=== PATIENT | male | born 1980 | race Caucasian/White ===

== ENCOUNTER 2018-02-02 08:04 | Emergency (ER) | payer MEDICAID ==
[2018-02-02 09:10] LABS: PLATELET COUNT 249 10^3/uL (150-400)
[2018-02-02] MEDS ORDERED: OLANZapine DISINTEGR 10 MG TAB PO ONE (09:38)
--- NOTE | 2018-02-02 09:40 | EDPHY ---
H & P Smoking Status: Current every day smoker Time Seen by Provider: 02/02/18 08:45 HPI/ROS: CHIEF COMPLAINT: Altered mental status, irregular speech HISTORY OF PRESENT ILLNESS: The patient is a 37-year-old male with a history of crystal meth abuse. Patient has been clean for 2 years per report of his parents. The parents left town and there is concerned the patient may have used crystal methamphetamine. The patient states that he was playing a game and "it got out of control." The patient has no complaints at this time. He feels as though he should not be here and that he has been here too long. REVIEW OF SYSTEMS: 10 systems were reveiwed and are negative with the exception of the elements mentioned in the history of present illness. (Kenia Gómez) Past Medical/Surgical History: Includes methamphetamine abuse (Kenia Gómez) Physical Exam: Vitals noted. Tachycardic at 1:12 a.m. GENERAL: No acute distress, alert. Pacing about the room HEENT: Dilated pupils, normal pharynx, no signs of dehydration. NECK: Normal, supple. RESPIRATORY: Clear to auscultation bilaterally, no rales, rhonchi or wheezing. CVS: Tachycardia and regular rhythm, no rubs, murmurs, or gallops. ABDOMEN: Soft, nontender, nondistended, no organomegaly. Benign BACK: Normal to inspection, no CVA tenderness. SKIN: Normal color, no rash, warm, dry. No pallor. EXTREMITIES: No pedal edema, no calf tenderness, no Homans sign or cords, no joint swelling. NEURO/PSYCH: Alert and agitated. Patient does not know the day or month. Patient does not know the year. Pressured speech. Rambling and illogical. Moves all extremities purposefully. (Kenia Gómez) Constitutional: Initial Vital Signs Temperature (C) 36.4 C 02/02/18 08:05 Heart Rate 112 H 02/02/18 08:05 Respiratory Rate 16 02/02/18 08:05 Blood Pressure 157/102 H 02/02/18 08:05 O2 Sat (%) 94 02/02/18 08:05 O2 Delivery Mode Room Air Allergies/Adverse Reactions: No Known Allergies Allergy (Unverified 02/02/18 08:18) Home Medications: Medication Instructions Recorded Unobtainable 02/02/18 Medical Decision Making ED Course/Re-evaluation: In the emergency department discussed plan with the patient. Patient was placed on an M1 hold. I felt the patient was gravely disabled. He is not able to answer my questions appropriately. He is unable to name the month or year. Patient has pressured and rambling speech. The patient was given Zyprexa 10 mg orally. CBC and chemistry unremarkable. Patient was given Haldol 10 mg IM. Patient's tox screen is positive for amphetamine. On recheck the patient was stable. 1500: The patient is signed out to Dr. Logan at change of shift. (Kenia Gómez) 0700: No acute events overnight patient has been sleeping. He did receive Haldol last night. He was methamphetamine positive. Signed over at 7:[address] Sherman. Plan for this patient is he is supposed like to go home with his parents today. They are coming back from [place] to pick him up. (Mika Cesar) I had a discussion with this patient. He does not know when his parents are coming from [place]. He has a home to go to. He has a dog there that he wants to take care of. He does not meet criteria at this time for an M1 hold. He is a methamphetamine addict. I am discharging him to make arrangements to me his parents. (Quang Sherman) Differential Diagnosis: My differential includes but is not limited to drug use, alcohol abuse, head injury, electrolyte abnormality, sugar abnormality, psychiatric illness (Kenia Gómez) Other Provider: I assumed care of this patient from Dr. Gómez at 3:00 p.m.. He is sleeping at this time after having been sedated. Apparently he was quite psychotic and difficult to control. I will not awaken him at this time. I will let him sleep this off a bit longer. He has no known psychiatric history and nursing staff has spoken with his parents who verify this. I suspect that his presentation is secondary to methamphetamine abuse. Nursing staff plans to obtain another set of vital signs. Patient evaluated by me around 4:30 PM. He awakens easily, answers questions appropriately. He remains mildly tachycardic and has occasional myoclonic-type jerking of limbs. He complains of fatigue. I expect him to return to his baseline as the meth wears off and I anticipate that he will be able to be discharged when that occurs. His care will be transferred to Dr. Cesar at change of shift. (Jumana Logan ) - Data Points Laboratory Results: Laboratory Results 02/02/18 08:40 02/03/18 01:40 02/03/18 01:40 Sodium 139 mEq/L mEq/L (135-145) Potassium 3.7 mEq/L mEq/L (3.5-5.2) Chloride 107 mEq/L mEq/L (97-110) Carbon Dioxide 24 mEq/l mEq/l (22-31) Anion Gap 8 mEq/L mEq/L (6-14) BUN 19 mg/dL mg/dL (7-23) Creatinine 0.8 mg/dL mg/dL (0.7-1.3) Estimated GFR > 60 Glucose 98 mg/dL mg/dL (70-100) Calcium 9.0 mg/dL mg/dL (8.5-10.4) Medications Given: Discontinued Medications Haloperidol Lactate (Haldol Injection) 10 mg IM EDNOW ONE Stop: 02/02/18 11:19 Last Admin: 02/02/18 11:24 Dose: 10 mg Sodium Chloride (Ns) 1,000 mls @ 0 mls/hr IV ONCE ONE PRN Reason: Wide Open Stop: 02/02/18 23:41 Last Admin: 02/03/18 01:38 Dose: Not Given Olanzapine (Zyprexa Zydis) 10 mg PO EDNOW ONE Stop: 02/02/18 09:39 Last Admin: 02/02/18 09:44 Dose: 10 mg Departure - Departure Disposition: Home, Routine, Self-Care Clinical Impression: Drug abuse, Methamphetamine abuse Condition: Good Instructions: Methamphetamine Abuse (ED) Referrals: Patient,NotPresent [Unknown] - As per Instructions
[2018-02-02] MEDS ORDERED: HALOPERIDOL LACT 5 MG/ML INJ IM ONE (11:18)
[2018-02-02] MEDS ORDERED: NS 1,000 ML IV ONE (23:40)
[2018-02-03 09:16] VITALS: BP 119/67
== END 2018-02-03 09:45 | disposition home or self-care (01) ==
DX: F15.10 Other stimulant abuse, uncomplicated (principal)
CPT/HCPCS: 80305; G0480; J1630

== ENCOUNTER 2018-02-28 07:55 | Emergency (ER) | payer MEDICAID, OTHER ==
[2018-02-28] MEDS ORDERED: LORazepam 2 MG/ML INJ IVP ONE (08:53)
--- NOTE | 2018-02-28 09:03 | EDPHY ---
H & P Stated Complaint: meth use/AMS - Personal History Current Tetanus Diphtheria and Acellular Pertussis (TDAP): Unsure - Medical/Surgical History Hx Asthma: No Hx Chronic Respiratory Disease: No Hx Diabetes: No Hx Cardiac Disease: No Hx Renal Disease: No Hx Cirrhosis: No Hx Alcoholism: No Hx HIV/AIDS: No Hx Splenectomy or Spleen Trauma: No Other PMH: meth use - Social History Smoking Status: Current every day smoker Drug Use: Other (meth) Time Seen by Provider: 02/28/18 07:58 HPI/ROS: CHIEF COMPLAINT: Paranoia, meth use Limitations: Altered mental status HISTORY OF PRESENT ILLNESS: 38-year-old male presents with paranoia and agitation. Long history of methamphetamine abuse, recently escalated. Last used meth this morning. According to his family, he was very paranoid and agitated at home. Having visual hallucinations. No prior history of mental illness. REVIEW OF SYSTEMS: complete 10 point ROS reviewed and is negative except for the noted elements in the HPI (Nicole Metzger) - Physical Exam Exam: General Appearance: Alert, agitated Eyes: Pupils equal and round, no conjunctival pallor or injection ENT, Mouth: Mucous membranes moist Neck: Normal inspection Respiratory: Lungs are clear to auscultation Cardiovascular: Regular rate and rhythm Gastrointestinal: Abdomen is soft and nontender Neurological: Alert, oriented to person and place, a nonfocal exam Skin: Warm and dry Extremities: Normal inspection Psychiatric: Agitated, paranoid ] (Nicole Metzger) Constitutional: Initial Vital Signs Temperature (C) 36.6 C 02/28/18 08:02 Heart Rate 112 H 02/28/18 08:02 Respiratory Rate 22 H 02/28/18 08:02 Blood Pressure 135/97 H 02/28/18 08:02 O2 Sat (%) 99 02/28/18 08:02 O2 Delivery Mode Room Air Allergies/Adverse Reactions: No Known Allergies Allergy (Unverified 02/02/18 08:18) Home Medications: Medication Instructions Recorded Unobtainable 02/02/18 Medical Decision Making ED Course/Re-evaluation: 1500: The patient is signed out to me by Dr. Metzger at change of shift. The patient is awaiting the tablets a gooden of his methamphetamine. He has no complaints at this time. 16 10: The patient is doing well. He is answering questions appropriately. He is ambulating about the emergency department. Dr. Metzger felt the patient could be discharged home with a family member friend. Patient is unable to contact any family member friend. I discussed other options with the patient. He agreed to be discharged to the [facility]. The [facility] was contacted and accepted the patient. (Kenia Gómez) This patient presents with agitation and paranoia after methamphetamine use. Ativan 2 mg IV given at 9:00 a.m. The patient slept comfortably during much of my shift. At 2:30 p.m.-I reassessed the patient. He is alert, still appears to be hallucinating, but states that he feels better and would like to go home. Sx secondary to meth use, doubt mental illness. We will attempt to have family members take him home. 3:00 p.m.-signed over to Dr. Gómez at shift change. Plan to discharge home with a family member or friend. (Nicole Metzger) Differential Diagnosis: Differential diagnosis includes though it is not limited to suicidal ideation, overdose, acute psychosis, self-injury, alcohol withdrawal. (Nicole Metzger) - Data Points Laboratory Results: Laboratory Results 02/28/18 08:45 02/28/18 08:45 Medications Given: Discontinued Medications Lorazepam (Ativan Injection) 2 mg IVP EDNOW ONE Stop: 02/28/18 08:54 Last Admin: 02/28/18 08:59 Dose: 2 mg Departure - Departure Disposition: Home, Routine, Self-Care Clinical Impression: Drug abuse Condition: Good Instructions: Methamphetamine Abuse (ED) Additional Instructions: Return with worsening symptoms or any other concerns. Referrals: Rik Matthews MD [[facility] Primary Care Provider] - 5-7 days, call for appt.
[2018-02-28 09:13] LABS: PLATELET COUNT 240 10^3/uL (150-400)
[2018-02-28 16:53] VITALS: BP 135/78
== END 2018-02-28 17:05 | disposition home or self-care (01) ==
LOC: EDUNIT#
DX: F15.10 Other stimulant abuse, uncomplicated (principal)
CPT/HCPCS: 80305; 96374; G0480; J2060

== ENCOUNTER 2018-03-23 23:50 | Emergency (ER) | payer MEDICAID ==
[2018-03-23 23:59] VITALS: BP 134/74
--- NOTE | 2018-03-24 00:10 | EDPHY ---
H & P Stated Complaint: Meth abuse-med clear for long term Time Seen by Provider: 03/24/18 00:01 HPI/ROS: HPI The patient presents with medical clearance for long term. The [place] [address] [place] He was acting somewhat erratically and was found to have methamphetamine on him. Police found him on the side of the road. Initially he seemed coherent, however he began to seem confused and became nonverbal. He was brought in for medical clearance. On reviewed the patient's record he has been seen twice here over the last 2 months with similar presentations, both in the setting of methamphetamine intoxication. One of his prior visits he was on an M1 hold. He does not have any SI or HI currently. He does not have any complaints of pain or injury. He has not had a fever recently. REVIEW OF SYSTEMS 10 systems were reviewed and negative with the exception of the elements mentioned in the history of present illness. PMHx: No diabetes, no hypertension Soc Hx: Originally from [place], history of methamphetamine abuse PHYSICAL General Appearance: Alert, no distress Eyes: Pupils equal and round no pallor or injection ENT, Mouth: Mucous membranes moist Respiratory: There are no retractions, lungs are clear to auscultation Cardiovascular: Regular rate and rhythm Gastrointestinal: Abdomen is soft and non-tender, no masses, bowel sounds normal Neurological: A&O, moves all extremities Skin: Warm and dry, no rashes Musculoskeletal: Neck is supple non tender Extremities: symmetrical, full range of motion Psychiatric: Patient is oriented X 3, he is somewhat agitated Source: Patient, Police, EMS, Old records Exam Limitations: Intoxication - Personal History Current Tetanus Diphtheria and Acellular Pertussis (TDAP): Yes - Medical/Surgical History Hx Asthma: No Hx Chronic Respiratory Disease: No Hx Diabetes: No Hx Cardiac Disease: No Hx Renal Disease: No Hx Cirrhosis: No Hx Alcoholism: No Hx HIV/AIDS: No Hx Splenectomy or Spleen Trauma: No Other PMH: meth use - Social History Smoking Status: Current every day smoker Constitutional: Initial Vital Signs Temperature (C) 36.6 C 03/23/18 23:56 Heart Rate 81 03/23/18 23:56 Respiratory Rate 16 03/23/18 23:56 Blood Pressure 134/74 H 03/23/18 23:56 O2 Sat (%) 96 03/23/18 23:56 O2 Delivery Mode Room Air Allergies/Adverse Reactions: No Known Allergies Allergy (Unverified 03/23/18 23:55) Home Medications: Medication Instructions Recorded NK [No Known Home Meds] 03/23/18 Medical Decision Making Differential Diagnosis: 38-year-old male presents for medical clearance for long term. Exhibiting some confusion and strange behavior for police. To me, he appears intoxicated with methamphetamine. His presentation is similar to his 2 prior presentations over the last 2 months in the setting of methamphetamine abuse. There are no external signs of trauma or other complaints. The patient will be medically clear for long term and will be discharged from the emergency department. Departure - Departure Disposition: Law Enforcement/Court/Snf Clinical Impression: Methamphetamine intoxication, Medical clearance for incarceration Condition: Good Instructions: Methamphetamine Abuse (ED) Additional Instructions: The patient is medically clear for long term. He appears to be intoxicated with methamphetamine. Referrals: [facility],. [Clinic] - As per Instructions
== END 2018-03-24 00:12 ==
LOC: EDUNIT#
DX: F15.920 Other stimulant use, unspecified with intoxication, uncomplicated (principal); F17.200 Nicotine dependence, unspecified, uncomplicated

== ENCOUNTER 2018-04-17 19:11 | Emergency (ER) | payer MEDICAID ==
--- NOTE | 2018-04-17 19:16 | EDPHY ---
H & P Time Seen by Provider: 04/17/18 19:11 HPI/ROS: CHIEF COMPLAINT: Methamphetamine abuse HISTORY OF PRESENT ILLNESS: Patient is a 38-year-old man who was acting erratic in the grocery store. Police were called. They chased him through the store and eventually held him at [facility]. He has been moderately resistance and required restraints and mg of Versed by EMS. He admits to using methamphetamine today. He denies suicidality or homicidality. No other complaints. Police have placed him on a substance abuse hold. Severity: Moderate Modifying factors: Some improvement with Versed and calming techniques. REVIEW OF SYSTEMS: Unable to obtain secondary to condition EXAM: GENERAL: Anxious, moderate distress HEAD: Atraumatic, normocephalic. EYES: Pupils equal round and reactive to light, extraocular movements intact, sclera anicteric, conjunctiva are normal. ENT: TMs normal, nares patent, oropharynx clear without exudates. Moist mucous membranes. NECK: Normal range of motion, supple without lymphadenopathy or JVD. LUNGS: Breath sounds clear to auscultation bilaterally and equal. No wheezes rales or rhonchi. HEART: Slightly tachycardic, Regular rate and rhythm without murmurs, rubs or gallops. ABDOMEN: Soft, nontender, normoactive bowel sounds. No guarding, no rebound. No masses appreciated. BACK: No CVA tenderness, no spinal tenderness, step-offs or deformities EXTREMITIES: Normal range of motion, no pitting or edema. No clubbing or cyanosis. NEUROLOGICAL: Cranial nerves II through XII grossly intact. Pressured speech, restrained. 5/5 strength, normal movement in all extremities, normal sensation , normal reflexes PSYCH: Anxious, restrained, answers questions appropriately SKIN: Warm, dry, normal turgor, no visible rashes or lesions. Source: Patient, Police, EMS Exam Limitations: No limitations - Medical/Surgical History Hx Asthma: No Hx Chronic Respiratory Disease: No Hx Diabetes: No Hx Cardiac Disease: No Hx Renal Disease: No Hx Cirrhosis: No Hx Alcoholism: No Hx HIV/AIDS: No Hx Splenectomy or Spleen Trauma: No Other PMH: meth use - Family History Significant Family History: No pertinent family hx - Social History Smoking Status: Current every day smoker Drug Use: Other Constitutional: Initial Vital Signs Temperature (C) 36.7 C 04/17/18 19:23 Heart Rate 122 H 04/17/18 19:23 Respiratory Rate 18 04/17/18 19:23 Blood Pressure 139/81 H 04/17/18 19:23 O2 Sat (%) 99 04/17/18 19:23 O2 Delivery Mode Room Air Allergies/Adverse Reactions: No Known Allergies Allergy (Verified 04/17/18 19:23) Home Medications: Medication Instructions Recorded NK [No Known Home Meds] 03/23/18 Medical Decision Making ED Course/Re-evaluation: 8:40 p.m. the patient is calm and answers questions appropriately. He is ambulating in the emergency department. We are contacting family. 9:00 p.m. The family does not wish to pick him up but [facility] Will disposition there. Differential Diagnosis: Partial list of the Differential diagnosis considered include but were not limited to; polysubstance abuse, intoxication, psychosis and although unlikely based on the history and physical exam, I also considered head injury, infection. - Data Points Laboratory Results: Laboratory Results 04/17/18 19:27 04/17/18 19:27 04/17/18 04/17/18 19:27 19:27 WBC 8.09 10^3/uL 10^3/uL (3.80-9.50) RBC 5.15 10^6/uL 10^6/uL (4.40-6.38) Hgb 15.7 g/dL g/dL (13.7-17.5) Hct 49.5 % % (40.0-51.0) MCV 96.1 fL fL (81.5-99.8) MCH 30.5 pg pg (27.9-34.1) MCHC 31.7 g/dL L g/dL (32.4-36.7) RDW 14.3 % % (11.5-15.2) Plt Count 324 10^3/uL 10^3/uL (150-400) MPV 10.2 fL fL (8.7-11.7) Neut % (Auto) 49.1 % % (39.3-74.2) Lymph % (Auto) 41.2 % % (15.0-45.0) [place] % (Auto) 7.8 % % (4.5-13.0) Eos % (Auto) 1.1 % % (0.6-7.6) Baso % (Auto) 0.6 % % (0.3-1.7) Nucleat RBC Rel Count 0.0 % % (0.0-0.2) Absolute Neuts (auto) 3.97 10^3/uL 10^3/uL (1.70-6.50) Absolute Lymphs (auto) 3.33 10^3/uL H 10^3/uL (1.00-3.00) Absolute Monos (auto) 0.63 10^3/uL 10^3/uL (0.30-0.80) Absolute Eos (auto) 0.09 10^3/uL 10^3/uL (0.03-0.40) Absolute Basos (auto) 0.05 10^3/uL 10^3/uL (0.02-0.10) Absolute Nucleated RBC 0.00 10^3/uL 10^3/uL (0-0.01) Immature Gran % 0.2 % % (0.0-1.1) Immature Gran # 0.02 10^3/uL 10^3/uL (0.00-0.10) Sodium 142 mEq/L mEq/L (135-145) Potassium 4.1 mEq/L mEq/L (3.5-5.2) Chloride 104 mEq/L mEq/L (97-110) Carbon Dioxide 12 mEq/l L mEq/l (22-31) Anion Gap 26 mEq/L H mEq/L (6-14) BUN 31 mg/dL H mg/dL (7-23) Creatinine 1.1 mg/dL mg/dL (0.7-1.3) Estimated GFR > 60 Glucose 157 mg/dL H mg/dL (70-100) Calcium 10.6 mg/dL H mg/dL (8.5-10.4) Ethyl Alcohol < 10 mg/dL mg/dL (0-10) Departure - Departure Disposition: Home, Routine, Self-Care Clinical Impression: Methamphetamine abuse Condition: Fair Instructions: Methamphetamine Abuse (ED) Referrals: NONE *PRIMARY CARE P,. [Primary Care Provider] - As per Instructions [facility],. [Clinic] - As per Instructions
[2018-04-17 19:25] VITALS: BP 139/81
[2018-04-17 19:32] LABS: PLATELET COUNT 324 10^3/uL (150-400)
== END 2018-04-17 21:59 | disposition home or self-care (01) ==
LOC: EDUNIT#
DX: F15.10 Other stimulant abuse, uncomplicated (principal)
CPT/HCPCS: G0480

== ENCOUNTER 2018-04-25 21:46 | Emergency (ER) | payer MEDICAID ==
--- NOTE | 2018-04-25 21:57 | EDPHY ---
H & P Time Seen by Provider: 04/25/18 21:48 HPI/ROS: Chief Complaint: Agitation, methamphetamine abuse HPI: 38-year-old male being brought in by EMS and police for agitation after using methamphetamines. Patient reportedly broken to a neighbor's house. 911 was called. Patient has a known history of methamphetamine abuse. He denies using any drugs tonight states he is feeling anxious. Denies being suicidal or homicidal. He is not hallucinating. No recent illness. No nausea or vomiting. Currently without complaint. Denies hallucinations. Denies paranoia. ROS: 10 systems were reviewed and were negative except those elements noted in the HPI. PMH: Substance abuse Social History: Positive smoking, positive alcohol, history of methamphetamine abuse Family History: non-contributory Physical Exam: Gen: Awake, Alert, answering questions appropriately, normal vital signs HEENT: Nose: no rhinorrhea Eyes: PERRLA, EOMI Mouth: Moist mucosa Neck: Supple, no JVD Chest: nontender, lungs clear to auscultation Heart: S1, S2 normal, no murmur Abd: Soft, non-tender, no guarding Back: no CVA tenderness, no midline tenderness Ext: no edema, non-tender Skin: no rash Neuro: CN II-XII intact, Sensation grossly intact, Strength 5/5 in bilateral upper and lower extremities - Medical/Surgical History Hx Asthma: No Hx Chronic Respiratory Disease: No Hx Diabetes: No Hx Cardiac Disease: No Hx Renal Disease: No Hx Cirrhosis: No Hx Alcoholism: No Hx HIV/AIDS: No Hx Splenectomy or Spleen Trauma: No Other PMH: meth use - Social History Smoking Status: Current every day smoker Allergies/Adverse Reactions: No Known Allergies Allergy (Verified 04/17/18 19:23) Home Medications: Medication Instructions Recorded NK [No Known Home Meds] 03/23/18 Medical Decision Making ED Course/Re-evaluation: 38-year-old male being brought in by police for medical clearance for methamphetamine use. Patient reportedly broken no neighbor's house. He is currently awake and alert. Mildly agitated but conversant. Denies substance abuse. He has very mildly hypertensive. Not tachycardic. Not hypoxemic. Is awake alert acting otherwise appropriately. Patient denies any substance use at all. No evidence of any trauma. No acute medical condition noted. He is medically cleared for detention. Departure - Departure Disposition: Law Enforcement/Court/Senior Living Clinical Impression: Polysubstance abuse Condition: Good Instructions: Polysubstance Abuse (ED) Additional Instructions: MEDICALLY CLEAR FOR LONG-TERM Referrals: [facility],. [Clinic] - As per Instructions
[2018-04-25 22:01] VITALS: BP 148/96
== END 2018-04-25 22:13 ==
LOC: EDUNIT#
DX: F19.10 Other psychoactive substance abuse, uncomplicated (principal); R45.1 Restlessness and agitation

== ENCOUNTER 2018-06-11 13:38 | Emergency (ER) | payer MEDICAID ==
[2018-06-11] MEDS ORDERED: HALOPERIDOL LACT 5 MG/ML INJ ONE ×2 (13:39→13:40)
[2018-06-11] MEDS ORDERED: HALOPERIDOL LACT 5 MG/ML INJ IM ONE (13:40)
--- NOTE | 2018-06-11 13:42 | EDPHY ---
H & P Source: Patient, Police, EMS - Medical/Surgical History Hx Asthma: No Hx Chronic Respiratory Disease: No Hx Diabetes: No Hx Cardiac Disease: No Hx Renal Disease: No Hx Cirrhosis: No Hx Alcoholism: No Hx HIV/AIDS: No Hx Splenectomy or Spleen Trauma: No Other PMH: meth use - Social History Smoking Status: Current every day smoker Time Seen by Provider: 06/11/18 14:00 HPI/ROS: HPI CHIEF COMPLAINT: acute agitation, methamphetamine intoxication HISTORY OF PRESENT ILLNESS: Patient is a 38-year-old male, he presents to the emergency room by EMS and police and in 4 point restraints after he was at a local coffee shop harassing patrons there. The police were called. He admits to doing methamphetamine. He is under the influence of methamphetamine and arrives to the emergency room somewhat agitated in 4 point restraints. Unable to obtain any history from him. Past Medical History: Unknown medical history Past Surgical History: Unknown surgical history Social History: Methamphetamine. Family History: Unknown ROS REVIEW OF SYSTEMS: Limited due to mental state Exam Constitutional somewhat agitated upon arrival, triage nursing summary reviewed , vital signs reviewed, awake/alert. Eyes normal conjunctivae and sclera, EOMI, PERRLA. HENT normal inspection, atraumatic, moist mucus membranes, no epistaxis, neck supple/ no meningismus, no raccoon eyes. Respiratory clear to auscultation bilaterally, normal breath sounds, no respiratory distress, no wheezing. Cardiovascular rate normal, regular rhythm, no murmur, no edema, distal pulses normal. Gastrointestinal soft, non-tender, no rebound, no guarding, normal bowel sounds, no distension, no pulsatile mass. Genitourinary no CVA tenderness. Musculoskeletal no midline vertebral tenderness, full range of motion, no calf swelling, no tenderness of extremities, no meningismus, good pulses, neurovascularly intact. Skin pink, warm, & dry, no rash, skin atraumatic. Neurologic alert,, moves all 4 extremities equally, motor intact, sensory intact, CN II-XII intact, normal cerebellar, normal vision, normal speech. Psychiatric agitated, will not answer questions Heme/Lymph/Immune no lymphadenopathy. Differential Diagnosis: Includes but is not limited to in a particular order methamphetamine intoxication, acute agitation, psychosis, underlying mental illness, underlying drug intoxication Medical Decision Making: Plan for this patient 10 mg IM Haldol if needed, basic labs, and re-evaluate. Re-evaluation: 2139: Patient sleeping. Patient on a M1 hold. Patient now sleeping/resting comfortably. Patient needs eval. Signed over to Dr. Andrews 10pm (Mika Cesar) Constitutional: Initial Vital Signs Temperature (C) 36.1 C 06/11/18 14:00 Heart Rate 89 06/11/18 14:00 Respiratory Rate 16 06/11/18 14:00 Blood Pressure 150/82 H 06/11/18 14:00 O2 Sat (%) 95 06/11/18 14:00 O2 Delivery Mode Room Air Allergies/Adverse Reactions: No Known Allergies Allergy (Verified 04/25/18 21:58) Home Medications: Medication Instructions Recorded NK [No Known Home Meds] 03/23/18 Medical Decision Making Other Provider: [address] Cesar pending clearance from his methamphetamine use and mental health evaluation. 0700 patient signed out to Dr. Logan pending mental health evaluation. There been no issues during my care this patient overnight. (Jame Andrews) I assumed care of this patient at 7:[address] Andrews. Mental health evaluation pending want patient has metabolized methamphetamine and is appropriate for eval. At 7:45 a.m. The patient has been evaluated by the mental health minister. It is felt that his presentation is secondary to methamphetamine abuse. He is now clear and appropriate. The M1 hold is being lifted and he will be discharged. ( Jumana Logan) - Data Points Laboratory Results: Laboratory Results 06/11/18 13:50 06/11/18 13:50 06/11/18 19:30 Urine Opiates Screen NEGATIVE (NEGATIVE) Urine Barbiturates NEGATIVE (NEGATIVE) Ur Phencyclidine Scrn NEGATIVE (NEGATIVE) Ur Amphetamine Screen NON-NEGATIVE H (NEGATIVE) U Benzodiazepines Scrn NEGATIVE (NEGATIVE) Urine Cocaine Screen NEGATIVE (NEGATIVE) U Marijuana (THC) Screen NEGATIVE (NEGATIVE) Medications Given: Discontinued Medications Haloperidol Lactate (Haldol Injection) 10 mg IM EDNOW ONE Stop: 06/11/18 13:41 Last Admin: 06/11/18 13:50 Dose: 10 mg Departure - Departure Disposition: Home, Routine, Self-Care Clinical Impression: Methamphetamine abuse Condition: Fair Instructions: Methamphetamine Abuse (ED) Referrals: [facility],. [Clinic] - As per Instructions
[2018-06-11 14:02] LABS: PLATELET COUNT 357 10^3/uL (150-400)
[2018-06-12 08:03] VITALS: BP 122/98
--- NOTE | 2018-06-12 08:21 | ASMTTLCEVL ---
[facility] Evaluation - Basic Information Evaluation Start Date and 06/12/2018 07:30 AM Time Hospital Status Answers: M1 Hold 72-hr M1 Hold Start Date 06/11/2018 01:45 PM and Time Patient statement Notes: I dont actually remember a lot from last night. Currently, Im feeling better. Kailey been having weekly relapses on meth for the past 3 months. I dont want to kill myself or anybody. I had an appointment with [facility] on the that I missed, but am willing to re-contact them. Narrative Notes: Pt is a 38 yo, single, unemployed, homeless, homosexual, male with reported long history of poly-substance abuse with drug of choice being methamphetamine, brought to [facility] by [employer] on M1 hold which noted: The defendant was contacted because he was wandering around the mall talking to himself. He reportedly spoke to individuals who were not there and said he was struggling with his sanity. He continue making illogical statements and exerted aggressive behaviors. His body continually shook and he was unresponsive to basic questions. It appeared he suffered from an altered state of reality. BAL was zero. UDS results were positive for amphetamine. Pt was administered Haldol 10 mg IM at 1350 hrs yesterday. He slept throughout most of the night. The following morning upon medical clearance, evaluation was conducted. Pt denied any recent/current suicidal/homicidal ideation/intent/plans. He was alert and oriented X 4. He was cooperative throughout the interview process. Diagnosis History Notes: Pt reported no prior psychiatric diagnosis history. Pt reported history of poly-substance abuse with drug of choice being methamphetamine. Prior suicide attempts Notes: Pt denied any past history of suicide attempts. Prior hospitalizations Notes: Pt reported he went to drug rehab hospital in [place], [place] about 10 years ago. Treatment Responses Notes: N/A. History of violence Notes: Pt denied any recent/current homicidal ideation/intent/plans. Therapist: None. Psychiatrist: None. Medications (name, dosage, route, freq uency) Notes: None. Allergies/Reaction Notes: NKDA. Sleep Notes: Pt reported his sleep has been somewhat decreased when using meth. Appetite Notes: WNL. Medical/Surgical history Notes: Noncontributory. Substance use history (frequency, intensity, his tory, duration) Notes: Pt reported he first tried alcohol and marijuana around the age of 14. He reported he has not consumed any alcohol in several years and that his last use of marijuana was about 15 years ago. He reported he first tried methamphetamine at age 16. He reported having a 3 year period of abstinence from meth, quitting on his own, until about 3 months ago. Pt reported some past use history of LSD, MDMA, and cocaine, but none in over 15 years. BAL was zero. UDS results were positive for amphetamine. Family composition Notes: Pt reported that his parents remain to one another and reside in [facility]. He has a brother and two sisters, each residing outside the pending sale to [facility]. Need for family Answers: No participation in patient's care Family psychiatric/substance abuse history Notes: Pt reported he had another brother that from a heroin overdose 15 years ago. Developmental history Notes: Pt reported he was born and raised in [place], [place]. He endorsed having achieved normal childhood developmental milestones. He denied any history of TBIs, LOC or concussions. He denied any childhood experiences of physical, emotional or sexual abuse/trauma. Abuse concerns Answers: None Marital status/children Notes: Pt is single, never , no dependents. Pt identified self as homosexual in orientation. Living situation Notes: Pt reported he lives in a house on [address] [facility] [address] [facility] in [place]. Sexual history/orientation Notes: Not active. Heterosexual. Peer support/family strengths Notes: Pt stated, none. Education level/history Notes: Pt reported that in January 2018, he completed 2 years at [employer] studying computer sciences. Work history Notes: Not employed for the past month. 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 Notes: None. Legal Notes: Pt reported currently being on pre-trial supervision for a trespassing and harassment charges two weeks ago. Judaism/Spiritual Notes: None reported which might impact treatment. Leisure Notes: Pt stated, working out, cleaning stuff up, watching movies. Collateral Notes: No emergency contact information provided. Patient's strengths Answers: Artistic/Creative/Musical (Please select at least TWO strengths): Athletic Intelligent Willingness TLC Evaluation - Mental Status Exam Appearance: Answers: Unclean Unkempt Eye Contact: Answers: Intermittent Mood: Answers: Euthymic Affect: Answers: Blunted Calm Flat Behavior: Answers: Cooperative Speech: Answers: Relevant Logical Clear Coherent Thought Process: Answers: Organized Oriented Alert Goal Oriented Intact Insight: Answers: Fair Judgement: Answers: Good Manic Signs/Symptoms Answers: Impulsivity Depression Answers: Difficulty Concentrating Signs/Symptoms: Flat Affect Hallucinations: Answers: None Current Stage of Change Answers: Precontemplation Preparation Pt reported to have Answers: No suicidal/self-injuring ideation/behavior? Pt reported to be making Answers: No suicidal/self-injuring threats? Pt reported to have Answers: No aggression/assault ideation/behavior? Pt reported to be making Answers: No aggression/assault threats? Pt exhibits inability to Answers: No care for self/grave disability? Ideation/behavior is Answers: No chronic? Patient has a specific Answers: No plan? Pt has access to means to Answers: No execute the plan? Ideation involves Answers: No serious/lethal intent? Ideation has Answers: No delusional/hallucinatory content? History of Answers: No suicidal/self-injuring ideation, behavior, or threats? History of Answers: No aggressive/assaultive ideation, behavior, or threats? History of serious Answers: No physical harm to self/others while in treatment setting? TLC Evaluation - Suicide/Homicide Risk Suicide Risk Factors: Answers: Alcohol/Heavy Drug Use Cluster "B" D/O or Traits Flat Affect Impulsivity Inadequate Social Support Intoxication Lack of Judaism Support Lack of Social Support Lack/Loss of Employment Legal Difficulties Single Homicide/violence risk Answers: None factors: Current Suicidal Answers: No Ideation? Current Suicidal Ideation Answers: No in the Past 48 Hours? Current Suicidal Ideation Answers: No in the Past Month? Current Suicidal Answers: No Ideation, Worst Ever? Suicide Internal Answers: Absence of Psychosis Protective Factors: Sushil with Stress Suicide External Answers: None Protective Factors: Ranking of patient's Answers: Low suicidal risk: Ranking of patient's Answers: Low homicidal risk: TLC Evaluation - Wrap-up AXIS I Diagnosis (include DSM-V and ICD-10 codes), must also be entered in [employer], which is the source of truth. 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 Logan concurred that pt does not appear to meet 27-65 criteria requiring psychiatric hospitalization as pt does not appear to be an imminent risk of harm to self/others/gravely disabled due to a mental illness condition. Dr. Logan provided telephone order read back vacating hold at 0745 hrs. Evaluation End Date and 06/12/2018 08:15 AM Time (HH:TIANA): Date Signed: 06/12/2018 08:20 AM Electronically Signed By:Jose Crockett
--- NOTE | 2018-06-12 08:21 | ASMTTCLDSP ---
TLC Discharge Disposition Disposition: Answers: Discharge If Answers: Yes DISCHARGED: Patient/family given suicide hotline info & [facility] brochure? Disposition Notes: Notes: Pt stated commitment or ability to keep self safe, denied thoughts of self harm or harm to others. Pt expressed a desire to f/u with [facility]. Pt was given local hotline information and [facility] brochure After an Attempt and encouraged to follow up with [facility]. Discharge Concerns/Recommendations: Notes: In consultation with [facility] ED physician, Jumana Logan MD, Dr. Logan concurred that pt does not appear to meet 27-65 criteria requiring psychiatric hospitalization as pt does not appear to be an imminent risk of harm to self/others/gravely disabled due to a mental illness condition. Dr. Logan provided telephone order read back vacating M1 hold at 0745 hrs. Was patient given the Answers: Not applicable Inpatient Behavioral Health Prohibited Belongings List while in the ED? Psychiatrist vacating M1 Jumana Loagn MD Hold: Date and time M1 hold 06/12/2018 07:45 AM vacated (time format is hh:mm): Type of Hold: Answers: M1/72-hour Hold Hold initiated by: Answers: Police Date Signed: 06/12/2018 08:21 AM Electronically Signed By:Jose Crockett
== END 2018-06-12 08:07 | disposition home or self-care (01) ==
LOC: EDUNIT#
PROC: GZ11ZZZ Psychological Tests, Personality and Behavioral (ICD-10-PCS; principal; 2018-06-11)
DX: F15.10 Other stimulant abuse, uncomplicated (principal); R45.1 Restlessness and agitation
CPT/HCPCS: 80305; 96374; G0480; J1630

== ENCOUNTER 2018-07-09 07:57 | Emergency (ER) | payer MEDICAID ==
[2018-07-09] MEDS ORDERED: HALOPERIDOL LACT 5 MG/ML INJ ONE (08:03)
--- NOTE | 2018-07-09 08:04 | EDPHY ---
H & P Time Seen by Provider: 07/09/18 08:01 HPI/ROS: CHIEF COMPLAINT: Agitated following drug use HISTORY OF PRESENT ILLNESS: The patient is brought to the emergency department by paramedics agitated following reported drug use. The patient has a history of methamphetamine abuse and is seen in the emergency department with some frequency secondary to acute delirium from methamphetamine. The patient presents with atypical presentation. He denies acute pain however is quite confused and slightly agitated. The patient received no medications by EMS prior to arrival. REVIEW OF SYSTEMS: A comprehensive 10 point review of systems is otherwise negative aside from elements mentioned in the history of present illness. Source: Patient, EMS Exam Limitations: No limitations - Medical/Surgical History Hx Asthma: No Hx Chronic Respiratory Disease: No Hx Diabetes: No Hx Cardiac Disease: No Hx Renal Disease: No Hx Cirrhosis: No Hx Alcoholism: No Hx HIV/AIDS: No Hx Splenectomy or Spleen Trauma: No Other PMH: meth use - Social History Smoking Status: Current every day smoker - Physical Exam Exam: General Appearance: Alert, slightly agitated mildly disoriented Head: Normocephalic atraumatic Eyes: Pupils equal and round no pallor or injection ENT, Mouth: Mucous membranes moist Respiratory: There are no retractions, lungs are clear to auscultation Cardiovascular: Regular rate and rhythm Gastrointestinal: Abdomen is soft and nontender, no masses, bowel sounds normal Neurological: Moves all 4 extremities with 5/5 strength, cranial nerves grossly intact Skin: Warm and dry, no rashes Musculoskeletal: Neck is supple nontender Extremities: symmetrical, full range of motion Psychiatric: Agitation, pressured speech Constitutional: Initial Vital Signs Temperature (C) 37.2 C 07/09/18 08:04 Heart Rate 116 H 07/09/18 08:04 Respiratory Rate 18 07/09/18 08:04 Blood Pressure 151/93 H 07/09/18 08:04 O2 Sat (%) 96 07/09/18 08:04 O2 Delivery Mode Room Air Allergies/Adverse Reactions: No Known Allergies Allergy (Verified 04/25/18 21:58) Home Medications: Medication Instructions Recorded NK [No Known Home Meds] 03/23/18 Medical Decision Making ED Course/Re-evaluation: I reviewed the patient's past medical records. The patient received 10 mg of IM Haldol. The patient was placed on an [facility] detain her by myself. The patient was observed in the emergency department and slowly metabolized his methamphetamine. He is now calm, cooperative, normally oriented and ambulatory. The patient denies suicidal or homicidal ideation. The patient would like to be discharged from the emergency department. I have vacated the [facility] hold. Differential Diagnosis: Differential diagnosis considered includes psychosis, substance abuse, schizophrenia - Data Points Medications Given: Haloperidol Lactate (Haldol Injection) 10 mg IM Q6HRS PRN PRN Reason: Agitation Stop: 01/05/19 08:06 Last Admin: 07/09/18 08:08 Dose: 10 mg Departure - Departure Disposition: Home, Routine, Self-Care Clinical Impression: Methamphetamine abuse Condition: Good Instructions: Methamphetamine Abuse (ED) Additional Instructions: 1. Continue use of methamphetamine put to at risk for serious injury and . 2. You have been given the number for the [facility] if you desire any assistance stopping methamphetamine and other recreational drugs. Referrals: [facility] [Outside] - As per Instructions
[2018-07-09] MEDS ORDERED: HALOPERIDOL LACT 5 MG/ML INJ IM PRN (08:07)
[2018-07-09 09:21] VITALS: BP 145/78
== END 2018-07-09 09:21 | disposition home or self-care (01) ==
LOC: EDUNIT#
DX: F15.10 Other stimulant abuse, uncomplicated (principal)
CPT/HCPCS: J1630